=== PATIENT | male | born 1980 | race Caucasian/White ===

== ENCOUNTER → 2021-02-08 15:13 | Outpatient (BNVA) | payer OTHER, SELFPAY | PROVIDERS: Family Provider Internal Medicine; Referring Provider Surgery; Visit Provider Surgery | DX: Z20.822 Contact with and (suspected) exposure to COVID-19 (principal); K92.1 Melena; R19.4 Change in bowel habit | CPT/HCPCS: 87635 ==

== ENCOUNTER 2021-02-10 07:45 | Day surgery (SDC) | payer OTHER, SELFPAY ==
[2021-02-08 11:17] VITALS: BMI 26.6
--- NOTE | 2021-02-10 07:51 | ANES.PREANE2 ---
Pre-Anesthetic Assessment Pre-Anesthetic Assessment: Height/Weight: Height 1.73 m Weight 79.379 kg Preop Diagnosis: tarry stools Proposed Procedure: Operation Date: 02/10/21 08:30 Proposed Procedures p EGD [id number] R19.4 K92.1(Not Applicable) - Jonathon Damon MD s Colonoscopy(Not Applicable) - Jonathon Damon MD Familial anesthetic complications: None Was Beta Jacob taken within 24 hours: N/A Was Clonidine taken within 24 hours: N/A Last intake: > 8 hrs Social: Social History: Alcohol and Tobacco Comment: opiate addiction Exam: Pre-Anes Outpt Exam: alert, oriented x 3, clear to auscultation bilaterally and regular rate & rhythm Airway: Cervical ROM: WNL MP: 1 Dentition: Other (missing) GI: GI: GERD Anesthetic Plan: ASA status: 1 Anesthesia: MAC Risk of > 500 ml blood loss (7ml/kg in children): No PFSH Anesthesia PFSH: Family History Grandmother CAD (coronary artery disease) Grandfather Diabetes Father Stroke Other Cancer Social History Smoking and tobacco status: current every day smoker cigarettes Packs smoked per day: 1 Alcohol intake: current Alcohol intake frequency: few times a month Lives independently: Yes Household members: spouse and children service: Yes Data Anesthesia Cardiac Studies: No Data to Display
[2021-02-10] MEDS: sodium chloride 0.9% 1,000 ML 30 ML IV (08:27)
--- NOTE | 2021-02-10 10:16 | W.PM.OPSUD ---
Surgery/Procedure H&P Update DATE OF PROCEDURE: February 10, 2021 DATE H&P PERFORMED: 01/18/21 H&P UPDATE INFORMATION: I have reviewed H&P completed within last 30 days, I have examined patient prior to procedure and No changes to prior documentation PREOP DIAGNOSIS: Melena and change in bowel habit PRIMARY INDICATION FOR PROCEDURE: The same PLANNED PROCEDURE: Operation Date: 02/10/21 08:30 Proposed Procedures p EGD [id number] R19.4 K92.1(Not Applicable) - Jonathon Damon MD s Colonoscopy(Not Applicable) - Jonathon Damon MD
--- NOTE | 2021-02-10 10:49 | ANE.PACU2 ---
Inpatient post-anesthesia follow up: Airway intact: Yes Vital signs: Temperature Pulse Rate Respiratory Rate Blood Pressure Pulse Oximetry Oxygen Delivery Me thod Oxygen Flow Rate Fraction of Inspir ed Oxygen Hydration adequate: Yes Nausea and vomiting: No Pain level: 1 Mental status: Baseline
[2021-02-10 10:50] VITALS: BP 110/56; PULSE 48; RESP 18; TEMP 36.3; O2SAT 98
[2021-02-10 11:04] VITALS: BP 123/78; PULSE 62; RESP 18; O2SAT 100
== END 2021-02-10 11:26 | disposition home or self-care (01) ==
PROVIDERS: Visit Provider Surgery
PROC: 0DJ08ZZ Inspection of Upper Intestinal Tract, Via Natural or Artificial Opening Endoscopic (ICD-10-PCS; CPT 43235; principal; 2021-02-10 08:30)
PROC: 0DJD8ZZ Inspection of Lower Intestinal Tract, Via Natural or Artificial Opening Endoscopic (ICD-10-PCS; CPT 45378; 2021-02-10 08:30)
DX: K92.1 Melena (principal); R19.4 Change in bowel habit; K44.9 Diaphragmatic hernia without obstruction or gangrene; K29.70 Gastritis, unspecified, without bleeding; Z82.49 Family history of ischemic heart disease and other diseases of the circulatory system; Z83.3 Family history of diabetes mellitus; F17.210 Nicotine dependence, cigarettes, uncomplicated
CPT/HCPCS: 43239; 45380; 88305; 96360; 96361; J2704; J7030

== ENCOUNTER → 2024-07-11 08:30 | Outpatient (BNVA) | payer OTHER, SELFPAY | PROVIDERS: Visit Provider Podiatrist Foot & Ankle Surgery | DX: L60.0 Ingrowing nail (principal); L60.8 Other nail disorders | CPT/HCPCS: 99203 ==